=== PATIENT | female | born 1975 | race Caucasian/White ===

== ENCOUNTER 2018-07-08 23:20 | Emergency (ER) | payer OTHER ==
[~2018-07-08] VITALS: Ht 152.4 cm; Wt 52.2 kg
[~2018-07-08 23:20] MED LIST: AMOXICILLIN500 M1 PO; GABAPENTIN 100100 MG PO; NOVOLOG100 UNIT/1 SQ; VOLTAREN GEL 1100 G2 TOP; ZOFRAN4 MG PO; magic mouthwash PO
[2018-07-08] MEDS ORDERED: HUMALOG100 UNIT/1 (23:35)
[2018-07-08] MEDS ORDERED: SYNTHROID50 MCG (23:36)
[2018-07-08 23:46] LABS: URINE BILIRUBIN NEGATIVE (Negative); URINE BLOOD NEGATIVE (Negative); URINE CLARITY CLEAR; URINE COLOR YELLOW; URINE GLUCOSE-RANDOM NEGATIVE (Negative); URINE KETONES 1+ (Negative); URINE LEUKOCYTES-REFLEX NEGATIVE (Negative); URINE NITRITE-REFLEX NEGATIVE (Negative); URINE PROTEIN NEGATIVE (Negative)
[2018-07-09 00:05] LABS: ABSOLUTE BASOPHILS 0.1 thou/uL (0.0-0.2); ABSOLUTE EOSINOPHILS 0.1 thou/uL (0.0-0.7); ABSOLUTE LYMPHOCYTES 1.4 thou/uL (0.8-5.3); ABSOLUTE MONOCYTES 0.6 thou/uL (0.0-1.2); ABSOLUTE NEUTROPHILS 5.4 thou/uL (1.6-8.1); BASOPHILS 0.7 %; EOSINOPHILS 1.7 %; HEMATOCRIT 39.9 % (37.0-47.0); LYMPHOCYTES 18.8 %; MCHC 32.6 g/dL (28.0-37.0); MCV 79.8 fL (80.0-100.0); MONOCYTES 7.6 %; MPV 8.3 fl. (7.2-11.1); NUCLEATED RBCS 0 /100WBC; PLATELET COUNT* 288 thou/uL (150-400); POLYS 71.2 %; RBC 5.01 mil/uL (4.20-5.00); RDW-CV 13.2 % (10.5-14.5); WBC 7.6 thou/uL (4.0-11.0)
[2018-07-09 00:32] LABS: CALCIUM 8.1 mg/dL (8.5-10.1); CREATININE 0.8 mg/dL (0.6-1.3); POTASSIUM 3.8 mmol/L (3.5-5.1)
[2018-07-09 00:37] LABS: ALBUMIN 3.3 g/dL (3.4-5.0); TOTAL BILIRUBIN 0.2 mg/dL (<0.1-1.0); TOTAL PROTEIN 6.3 g/dL (6.4-8.2)
[2018-07-09 01:33] VITALS: BP 116/64
== END 2018-07-09 01:36 | disposition home or self-care (01) ==
LOC: M.ERS 23:20
PROVIDERS: Emergency Medicine
DX: E11.649 Type 2 diabetes mellitus with hypoglycemia without coma (principal); E11.40 Type 2 diabetes mellitus with diabetic neuropathy, unspecified; Z79.4 Long term (current) use of insulin

== ENCOUNTER 2019-12-19 22:51 | Emergency (ER) | payer OTHER ==
[~2019-12-19] VITALS: Ht 152.4 cm; Wt 52.2 kg
[~2019-12-19 22:51] MED LIST changes: +HUMALOG100 UNIT/1; +SYNTHROID50 MCG
[2019-12-19] MEDS ORDERED: NOVOLOG100 UNIT/M (23:09)
[2019-12-20 00:06] LABS: HEMATOCRIT 39.1 % (37.0-47.0); HEMOGLOBIN 12.6 gm/dL (12.0-15.0); MCH 25.8 pg (26.0-34.0); MCHC 32.2 g/dL (28.0-37.0); MCV 80.1 fL (80.0-100.0); NUCLEATED RBCS 0 /100WBC; PLATELET COUNT* 296 thou/uL (150-400); RBC 4.89 mil/uL (4.20-5.00); WBC 15.5 thou/uL (4.0-11.0)
[2019-12-20 00:08] LABS: CALCIUM 7.6 mg/dL (8.5-10.1); CREATININE 0.9 mg/dL (0.6-1.3); POTASSIUM 3.8 mmol/L (3.5-5.1)
[2019-12-20 00:12] LABS: ALBUMIN 3.1 g/dL (3.4-5.0); TOTAL BILIRUBIN 0.2 mg/dL (<0.1-1.0); TOTAL PROTEIN 6.4 g/dL (6.4-8.2)
[2019-12-20 00:28] LABS: URINE BILIRUBIN NEGATIVE (Negative); URINE BLOOD NEGATIVE (Negative); URINE CLARITY CLEAR; URINE COLOR YELLOW; URINE GLUCOSE-RANDOM 3+ (Negative); URINE KETONES NEGATIVE (Negative); URINE LEUKOCYTES-REFLEX NEGATIVE (Negative); URINE NITRITE-REFLEX NEGATIVE (Negative); URINE PROTEIN NEGATIVE (Negative); URINE SPECIFIC GRAVITY 1.015 (1.005-1.030); URINE UROBILINOGEN 0.2 E.U./dl (0.2-1.0)
[2019-12-20 00:59] LABS: ABSOLUTE EOSINOPHILS 0.2 thou/uL (0.0-0.7); ABSOLUTE LYMPHOCYTES 1.1 thou/uL (0.8-5.3); ABSOLUTE MONOCYTES 0.8 thou/uL (0.0-1.2); ABSOLUTE NEUTROPHILS 13.5 thou/uL (1.6-8.1); PLATELET ESTIMATE ADEQUATE
[2019-12-20 01:00] LABS: GIANT PLATELETS RARE
[2019-12-20] MEDS ORDERED: ZOFRAN ODT4 MG DISSOLVE (02:14)
[2019-12-20 02:38] VITALS: BP 124/70
--- NOTE | 2019-12-20 16:50 | EKG ---
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: ED : 1975 Requested By: Vito Mix Order Number: [id number] MD: Joni Patricio Measurements Intervals [place] Rate: 84 P: 67 ND: 177 QRS: 58 QRSD: 85 T: -18 QT: 362 QTc: 428 Interpretive Statements Sinus rhythm Low voltage, precordial leads RSR' in V1 or V2, probably normal variant Nonspecific T abnormalities, inferior leads Compared to ECG 08/31/2014 10:05:02 Low QRS voltage now present RSR' in V1 or V2 now present T-wave abnormality now present Electronically Signed On 12-20-2019 16:49:21 [employer] by Joni Patricio [email or web address] <ELECTRONICALLY SIGNED> By: Joni Patricio MD, [facility] 12/20/19 1649 29 29 Joni Patricio MD, [facility] /EPI
== END 2019-12-20 02:38 | disposition home or self-care (01) ==
LOC: M.ERS 22:51
PROVIDERS: Emergency Medicine Emergency Medical Services
DX: R11.2 Nausea with vomiting, unspecified (principal); R10.9 Unspecified abdominal pain; E11.40 Type 2 diabetes mellitus with diabetic neuropathy, unspecified; Z79.4 Long term (current) use of insulin